=== PATIENT | male | born 1980 | race African-American/Black ===

== ENCOUNTER 2016-11-05 06:03 | Day surgery (SDC) | payer BC ==
[~2016-11-05] VITALS: Ht 180.3 cm; Wt 71.1 kg
[~2016-11-05 06:03] MED LIST: IBUPROFEN600 MG PO
[2016-11-05] MEDS ORDERED: NORCO1 TA1 PO (08:51)
--- NOTE | 2016-11-05 08:52 | Provider's Discharge Care Plan ---
Problem, Goal, Plan Problem List 1. Chronic cholecystitis
--- NOTE | 2016-11-05 08:52 | Provider's Discharge Care Plan ---
Problem, Goal, Plan Problem List 1. Chronic cholecystitis
--- NOTE | 2016-11-05 08:53 | DIAGNOSTIC IMAGING REPORT ---
PROCEDURE: XR INTRAOPERATIVE LAP LEONEL INDICATION: CHOLECYSTITIS TECHNIQUE: Intraoperative fluoroscopy provided for Dr. Caldera performing an intraoperative cholangiogram following cholecystectomy. Total fluoroscopy time 3 seconds. Cumulative dose 0.76 mGy. COMPARISON: None. FINDINGS: One intraoperative fluoroscopic spot image of the right upper quadrant of the abdomen demonstrates cannulation of the cystic duct stump and opacification of the intrahepatic and extrahepatic biliary tree. There are no filling defects. There is normal passage of contrast into the duodenum. IMPRESSION: 1. Negative intraoperative cholangiogram.
--- NOTE | 2016-11-05 09:14 | OPERATIVE REPORT ---
DATE OF SURGERY: 11/05/2016 SURGEON: Marlo Caldera MD [employer]PERATIONS [employer] DEPARTMENT: Jason Coffey III, MD. PREOPERATIVE DIAGNOSIS: 1. Chronic cholecystitis POSTOPERATIVE DIAGNOSIS: 1. Chronic cholecystitis PROCEDURE PERFORMED: 1. Laparoscopic cholecystectomy and cholangiography ANESTHESIA: General. INDICATIONS: The patient is 36-year-old man with recurrent food induced right upper quadrant abdominal pain. Ultrasound showed adherent stones versus polyps. This pain recurred reliably within 30 minutes of eating. SURGICAL TECHNIQUE: The patient was taken to the operating room, where a general anesthetic was administered and the patient prepped and draped in the usual sterile fashion. An orogastric tube, IV antibiotics, and sequential compression devices were in place. A local anesthetic of 0.5% Marcaine with epinephrine was used at each incision site. An infraumbilical incision was made and a Veress needle used to insufflate the abdominal cavity. A 10 mm cannula was passed and 3 additional cannulas were placed in the upper abdomen in the usual locations. The gallbladder was elevated and the cystic duct isolated at the neck of the gallbladder. A clip was placed and a fluoroscopic cholangiogram was carried out which showed normal ductal systems with no filling defect. The cystic artery and duct were clipped and divided. The gallbladder was stripped from the gallbladder fossa using electrocautery. It was pulled to the upper midline trocar site where a suction cannula was used to empty it completely and the empty gallbladder was slipped out. The gallbladder bed was free of blood or bile. Additional Marcaine was instilled. Gas was evacuated. A 4-0 Vicryl was used to close the midline trocar sites and Steri-Strips and dressings were placed at all sites. The patient left in stable condition and no intraoperative complications were encountered.
== END 2016-11-05 13:10 | disposition home or self-care (01) ==
LOC: OR SRH 06:03 → SCU SRH 06:05 → OR SRH 07:30
PROVIDERS: Surgery
PROC: BF131ZZ Fluoroscopy of Gallbladder and Bile Ducts using Low Osmolar Contrast (ICD-10-PCS; principal; 2016-11-05 07:30)
PROC: 0FT44ZZ Resection of Gallbladder, Percutaneous Endoscopic Approach (ICD-10-PCS; principal; 2016-11-05 07:30)
DX: K81.1 Chronic cholecystitis (principal); Z72.0 Tobacco use
CPT/HCPCS: 29240; 50002; 60001; 70002; 80102; 80212; 80248; 82794; 82807; 83339; 83348; 83587; 83920; 83937; 83982; 84038